=== PATIENT | male | born 1980 | race Caucasian/White ===

== ENCOUNTER 2024-06-20 22:35 | Emergency (ER) | payer BC ==
[~2024-06-20] VITALS: Ht 180.3 cm; Wt 93.0 kg
[2024-06-20 22:36] VITALS: PULSE 98; RESP 16; TEMP 98.5
[2024-06-20] MEDS ORDERED: DOXYCYCLINE HY100 M3 PO (23:09)
[2024-06-20] MEDS ORDERED: DOXYCYCLINE HYCLATE TABLET 100 MG TAB PO ONE (23:15)
[2024-06-20 23:16] VITALS: BP 133/88; O2SAT 99
== END 2024-06-20 23:19 | disposition home or self-care (01) ==
LOC: FSED 22:47
DX: L42 Pityriasis rosea (principal); E78.5 Hyperlipidemia, unspecified; E03.9 Hypothyroidism, unspecified; F17.210 Nicotine dependence, cigarettes, uncomplicated
CPT/HCPCS: 99283